=== PATIENT | female | born 1960 | race Caucasian/White ===

== ENCOUNTER 2019-10-11 21:13 | Emergency (ER) | payer SELFPAY ==
[~2019-10-11] VITALS: Ht 149.9 cm; Wt 53.5 kg
[2019-10-11 21:15] VITALS: BP 140/90
--- NOTE | 2019-10-11 21:15 | NUR ---
TO BED # 02 AMBULATORY
--- NOTE | 2019-10-11 21:20 | NUR ---
PT BIB DAUGHTER FOR C/O ABD PAIN 02/21 X 1 DAY. PAIN IN RUQ AND LUQ RADIATING TO L FLANK. PT ADMITS TO N/V/D. AND IS SOFT, ROUND, AND TENDER TO TOUCH. AFEBRILE. PT DENIES COUGH. PT RESPIRATIONS ARE EVEN AND UNLABORED. PT LUNGS A CLEAR A/P BILAT. DAUGHTER AT BEDSIDE. PT BED LOCKED AND IN LOWEST POSTION. MED HX: DM TYPE II, HTN, HYPERLIPIDEMIA. ALLERGIES: NKA
[2019-10-11] MEDS: NACL 0.9% 1,000 ML IV ONE (22:27)
--- NOTE | 2019-10-11 22:30 | NUR ---
BS: 276. MADE AWARE. NO NEW ORDER AT THIS TIME.
--- NOTE | 2019-10-11 22:30 | NUR ---
PT IV PLACED IN L AC 20 G. NS 0.9% RUNNING CONTINOUSLY. NO REDNESS, SWELLING, OR PAIN AT IV SITE. IV SITE PATENT.
[2019-10-11] MEDS: KETOROLAC 30 MG/ML VIAL IVP ONE (22:32)
[2019-10-11] MEDS: ONDANSETRON 4 MG/2 ML VIAL IVP ONE (22:34)
--- NOTE | 2019-10-11 22:41 | NUR ---
Dr. Ruiz examining patient.
[2019-10-11 22:44] LABS: APPEARANCE,URINE SL CLOUDY (CLEAR); BILIRUBIN,URINE NEGATIVE (NEGATIVE); BLOOD, URINE NEGATIVE (NEGATIVE); COLOR,URINE YELLOW (YELLOW); LEUKOCYTE ESTERASE ,URINE NEGATIVE (NEGATIVE); NITRITE, URINE NEGATIVE (NEGATIVE); UGLUCOSE NEGATIVE (NEGATIVE)
--- NOTE | 2019-10-11 23:02 | NUR ---
PT AAO X4. PAIN STATES ABD PAIN HAS DECREASED FROM 7/10 TO 3/10 AND IS TOLERABLE. NO REDNESS, SWELLING, OR PAIN AT IV SITE. IV SITE PATENT. RESPIRATIONS ARE EVEN AND UNALBORED. SKIN IS WARM AND DRY TO TOUCH. VSS.
[2019-10-11 23:25] VITALS: BP 131/69
--- NOTE | 2019-10-11 23:25 | NUR ---
Patient discharged with v/s stable. Written and verbal after care instructions given and explained. Patient alert, oriented and verbalized understanding of instructions. Ambulatory with steady gait. All questions addressed prior to discharge. ID band removed. Patient advised to follow up with PMD. Rx of MOTRIN, ZOFRAN, IMODIUM given. Patient educated on indication of medication including possible reaction and side effects. Opportunity to ask questions provided and answered.
== END 2019-10-11 23:25 | disposition home or self-care (01) ==
LOC: MED 21:13
DX: R10.12 Left upper quadrant pain (principal); R11.2 Nausea with vomiting, unspecified; R19.7 Diarrhea, unspecified; E11.9 Type 2 diabetes mellitus without complications; I10 Essential (primary) hypertension
CPT/HCPCS: 81003; 81025; 96361; 96374; 96375; 99284; J1885; J2405; J7030